=== PATIENT | female | born 1975 | race African-American/Black ===

== ENCOUNTER 2021-02-09 21:05 | Emergency (ER) | payer MEDICAID, OTHER ==
[~2021-02-09] VITALS: Ht 167.6 cm; Wt 68.0 kg
[2021-02-09] MEDS ORDERED: ACETAMINOPHEN 325MG TABLET PO STA (22:14)
[2021-02-09 22:45] VITALS: BP 132/81
== END 2021-02-09 23:04 | disposition home or self-care (01) ==
LOC: ER 21:05
DX: U07.1 COVID-19 (principal); B34.9 Viral infection, unspecified
CPT/HCPCS: 71045; 87426; 99284